=== PATIENT | female | born 1980 | race Caucasian/White ===

== ENCOUNTER 2018-02-17 03:11 | Inpatient (IN) | payer BC ==
[2018-02-17] MEDS ORDERED: Sodium Chloride 0.9% 10 ML Syringe FLUSH PRN ×2 (03:55→23:01)
[2018-02-17] MEDS ORDERED: Ondansetron 4 MG/2 ML SDV IVPUSH PRN ×2 (03:55→13:49)
[2018-02-17] MEDS ORDERED: Oxytocin/Lactated Ringers 10 UNIT/1,000 ML BAG IV SCH (04:00)
--- NOTE | 2018-02-17 08:03 | PCM.HP ---
<CesiliahomarLilliam L - Last Filed: 02/17/18 08:22> H&P History of Present Illness - General Date of Service: 02/17/18 Admit Problem/Dx: Admission Diagnosis/Problem Admission Diagnosis/Problem - History of Present Illness Initial Comments - Free Text/Narative: Jackie is a 37 YO white female who presented today at 02:00 for spontaneous rupture of membranes at 38-3/7 wks gestation by LMP and confirmed by U/S on 08/10/17. At 03:30 was found to be 1 cm dilated, 50% effaced, cervix posterior and firm. GBS neg. A POS blood type. RPR/HIV/HBsAg/GC/Chlamydia were all negative on screening. Rubella immune, Tdap given 12/16/17. History of section due to breech presentation. 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 No known h/o genetic diseases/disorders in family. 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: : 2 Para: 1 LMP (Approximate): - Past Surgical History Female Surgical History: Reports: Section (breech presentation), Other (See Below) Other Female Surgeries/Procedures: ASCUS HPV 2007, COLPOSCOPY 2007, normal since Social & Family History - Family History Family Medical History: Noncontributory - Tobacco Use Smoking Status *Q: Never Smoker Second Hand Smoke Exposure: No - Caffeine Use Caffeine Use: Reports: Coffee - Recreational Drug Use Recreational Drug Use: No H&P Review of Systems - Review of Systems: Review Of Systems: See Below General: Reports: No Symptoms HEENT: Reports: No Symptoms Pulmonary: Reports: No Symptoms Cardiovascular: Reports: No Symptoms Gastrointestinal: Reports: No Symptoms Genitourinary: Reports: No Symptoms Musculoskeletal: Reports: No Symptoms Skin: Reports: No Symptoms Psychiatric: Reports: No Symptoms Neurological: Reports: No Symptoms Hematologic/Lymphatic: Reports: No Symptoms Immunologic: Reports: No Symptoms Exam - Exam Exam: See Below - Vital Signs Vital Signs: Last Vital Signs Temp 37.1 C 02/17/18 03:52 Pulse 85 02/17/18 03:52 Resp 16 02/17/18 03:52 BP 114/81 02/17/18 03:52 Pulse Ox 98 02/17/18 03:52 Weight: 188 lb - Exam General: Alert, Oriented, 4 HEENT: Conjunctiva Clear, Hearing Intact Lungs: Clear to Auscultation, Normal Respiratory Effort Cardiovascular: Regular Rate, Regular Rhythm GI/Abdominal Exam: Normal Bowel Sounds (Female) Exam: Normal External Exam, Normal Bimanual Exam Extremities: Normal Inspection, Normal Range of Motion, Non-Tender, No Pedal Edema, Normal Capillary Refill Skin: Warm, Dry, Intact Neuro Extensive - Mental Status: Alert, Oriented x3, Normal Mood/Affect, Normal Cognition Psychiatric: Alert, Normal Affect, Normal Mood - Patient Data Lab Results Last 24 hrs: Laboratory Results - last 24 hr 02/17/18 02/17/18 Range/Units 04:05 04:05 WBC 9.91 (3.98-10.04) K/mm3 RBC 4.15 (3.98-5.22) M/mm3 Hgb 12.3 (11.2-15.7) gm/L Hct 37.0 (34.1-44.9) % MCV 89.2 (79.4-94.8) fl MCH 29.6 (25.6-32.2) pg MCHC 33.2 (32.2-35.5) g/dl RDW Std Deviation 41.1 (36.4-46.3) fL Plt Count 169 L (182-369) K/mm3 MPV 11.6 (9.4-12.3) fl Neut % (Auto) 66.6 (34.0-71.1) % Lymph % (Auto) 22.8 (19.3-51.7) % [place] % (Auto) 8.7 (4.7-12.5) % Eos % (Auto) 1.4 (0.7-5.8) Baso % (Auto) 0.3 (0.1-1.2) % Neut # (Auto) 6.60 H (1.56-6.13) K/mm3 Lymph # (Auto) 2.26 (1.18-3.74) K/mm3 [place] # (Auto) 0.86 H (0.24-0.36) K/mm3 Eos # (Auto) 0.14 (0.04-0.36) K/mm3 Baso # (Auto) 0.03 (0.01-0.08) K/mm3 Blood Type A POSITIVE Gel Antibody Screen Negative Result Diagrams: 02/17/18 04:05 - Problem List (1) 38 weeks gestation of SNOMED Code(s): 81272676 ICD Code: Z3A.38 - 38 WEEKS GESTATION OF Status: Acute Current Visit: Yes (2) Full-term premature rupture of membranes with onset of labor within 24 hours of rupture SNOMED Code(s): 943495342 ICD Code: O42.02 - FULL-TERM LOWELL ROM, ONSET LABOR WITHIN 24 HOURS OF RUPTURE Status: Acute Current Visit: Yes Problem List Initiated/Reviewed/Updated: Yes Orders Last 24hrs: Active Orders 24 hr Category Date Time Status Patient Status [ADT] Routine ADT 02/17/18 03:55 Active Activity as Tolerated [RC] PFP Care 02/17/18 03:55 Active Communication Order [RC] ASDIRECTED Care 02/17/18 03:55 Active Heart Tones [RC] ASDIRECTED Care 02/17/18 03:55 Active Non Stress Test [RC] PER UNIT ROUTINE Care 02/17/18 03:55 Active Notify Provider [RC] PFP Care 02/17/18 03:55 Active Notify Provider [RC] PRN Care 02/17/18 03:55 Active Peripheral IV Care [RC] . DIRECTED Care 02/17/18 03:55 Active Vital Signs [RC] PER UNIT ROUTINE Care 02/17/18 03:55 Active Clear Liquid Diet [DIET] Diet 02/17/18 Breakfast Active RAPID PLASMA REAGIN,RPR [CHEM] Routine Lab 02/17/18 04:05 Received Lactated Ringers [Ringers, Lactated] 1,000 ml Med 02/17/18 04:00 Active IV ASDIRECTED Nalbuphine [Nubain] Med 02/17/18 03:55 Active 10 mg IVPUSH Q2H PRN Ondansetron [Zofran] Med 02/17/18 03:55 Active 4 mg IVPUSH Q4H PRN Oxytocin/Lactated Ringers [Pitocin in LR 10 Units/1,000 Med 02/17/18 04:00 Active ML] 10 unit in 1,000 ml IV .CONTINUOUS Oxytocin/Lactated Ringers [Pitocin in LR 10 Units/1,000 Med 02/17/18 04:00 Active ML] 10 unit in 1,000 ml IV TITRATE Sodium Chloride 0.9% [Saline Flush] Med 02/17/18 03:55 Active 10 ml FLUSH ASDIRECTED PRN Electronic Heart Tones Ext w TOCO [WOMSER] Ot 02/17/18 03:55 Ordered Routine Electronic Heart Tones Internal [WOMSER] Per Unit Ot 02/17/18 03:55 Ordered Routine Peripheral IV Insertion Adult [OM.PC] Routine [facility] 02/17/18 03:55 Ordered Resuscitation Status Routine Resus Stat 02/17/18 03:55 Ordered Medication Orders Lactated Ringer's (Ringers, Lactated) 1,000 mls @ 100 mls/hr IV ASDIRECTED BOO Oxytocin/Lactated Ringer's (Pitocin In Lr 10 Units/1,000 Ml) 10 unit in 1,000 mls @ 12 mls/hr IV TITRATE BOO; Protocol Oxytocin/Lactated Ringer's (Pitocin In Lr 10 Units/1,000 Ml) 10 unit in 1,000 mls @ 500 mls/hr IV .CONTINUOUS BOO Nalbuphine HCl (Nubain) 10 mg IVPUSH Q2H PRN PRN Reason: pain Ondansetron HCl (Zofran) 4 mg IVPUSH Q4H PRN PRN Reason: Nausea/Vomiting Sodium Chloride (Saline Flush) 10 ml FLUSH ASDIRECTED PRN PRN Reason: Keep Vein Open Assessment/Plan Comment:: ASSESSMENT Patient is elva regularly on her own without medical amplification of labor. Patient strongly desires , vertex presentation of the fetus was confirmed via ultrasound at 08:30hrs. PLAN 1. Continue to monitor labor 2. Support patient's desire for 3. Plan for <Calos Cárdenas - Last Filed: 02/17/18 11:08> H&P History of Present Illness - General Admit Problem/Dx: Admission Diagnosis/Problem Admission Diagnosis/Problem - History of Present Illness Symptom Onset Date: 02/17/18 Symptom Onset Time: 02:00 (SROM) Exam - Vital Signs Vital Signs: Last Vital Signs Temp 98.7 F 02/17/18 03:52 Pulse 85 02/17/18 03:52 Resp 16 02/17/18 03:52 BP 114/81 02/17/18 03:52 Pulse Ox 98 02/17/18 03:52 - Patient Data Lab Results Last 24 hrs: Laboratory Results - last 24 hr 02/17/18 02/17/18 Range/Units 04:05 04:05 WBC 9.91 (3.98-10.04) K/mm3 RBC 4.15 (3.98-5.22) M/mm3 Hgb 12.3 (11.2-15.7) gm/L Hct 37.0 (34.1-44.9) % MCV 89.2 (79.4-94.8) fl MCH 29.6 (25.6-32.2) pg MCHC 33.2 (32.2-35.5) g/dl RDW Std Deviation 41.1 (36.4-46.3) fL Plt Count 169 L (182-369) K/mm3 MPV 11.6 (9.4-12.3) fl Neut % (Auto) 66.6 (34.0-71.1) % Lymph % (Auto) 22.8 (19.3-51.7) % [place] % (Auto) 8.7 (4.7-12.5) % Eos % (Auto) 1.4 (0.7-5.8) Baso % (Auto) 0.3 (0.1-1.2) % Neut # (Auto) 6.60 H (1.56-6.13) K/mm3 Lymph # (Auto) 2.26 (1.18-3.74) K/mm3 [place] # (Auto) 0.86 H (0.24-0.36) K/mm3 Eos # (Auto) 0.14 (0.04-0.36) K/mm3 Baso # (Auto) 0.03 (0.01-0.08) K/mm3 Blood Type A POSITIVE Gel Antibody Screen Negative Result Diagrams: 02/17/18 04:05 - Problem List (1) 38 weeks gestation of SNOMED Code(s): 53808920 ICD Code: Z3A.38 - 38 WEEKS GESTATION OF Status: Acute Current Visit: Yes (2) Full-term premature rupture of membranes with onset of labor within 24 hours of rupture SNOMED Code(s): 485383197 ICD Code: O42.02 - FULL-TERM LOWELL ROM, ONSET LABOR WITHIN 24 HOURS OF RUPTURE Status: Acute Current Visit: Yes Problem List Initiated/Reviewed/Updated: No Orders Last 24hrs: Active Orders 24 hr Category Date Time Status Patient Status [ADT] Routine ADT 02/17/18 03:55 Active Activity as Tolerated [RC] PFP Care 02/17/18 03:55 Active Communication Order [RC] ASDIRECTED Care 02/17/18 03:55 Active Heart Tones [RC] ASDIRECTED Care 02/17/18 03:55 Active Non Stress Test [RC] PER UNIT ROUTINE Care 02/17/18 03:55 Active Notify Provider [RC] PFP Care 02/17/18 03:55 Active Notify Provider [RC] PRN Care 02/17/18 03:55 Active Peripheral IV Care [RC] . DIRECTED Care 02/17/18 03:55 Active Vital Signs [RC] PER UNIT ROUTINE Care 02/17/18 03:55 Active Clear Liquid Diet [DIET] Diet 02/17/18 Breakfast Active RAPID PLASMA REAGIN,RPR [CHEM] Routine Lab 02/17/18 04:05 Received Lactated Ringers [Ringers, Lactated] 1,000 ml Med 02/17/18 04:00 Active IV ASDIRECTED Nalbuphine [Nubain] Med 02/17/18 03:55 Active 10 mg IVPUSH Q2H PRN Ondansetron [Zofran] Med 02/17/18 03:55 Active 4 mg IVPUSH Q4H PRN Oxytocin/Lactated Ringers [Pitocin in LR 10 Units/1,000 Med 02/17/18 04:00 Active ML] 10 unit in 1,000 ml IV .CONTINUOUS Oxytocin/Lactated Ringers [Pitocin in LR 10 Units/1,000 Med 02/17/18 04:00 Active ML] 10 unit in 1,000 ml IV TITRATE Sodium Chloride 0.9% [Saline Flush] Med 02/17/18 03:55 Active 10 ml FLUSH ASDIRECTED PRN Electronic Heart Tones Ext w TOCO [WOMSER] Ot 02/17/18 03:55 Ordered Routine Electronic Heart Tones Internal [WOMSER] Per Unit Ot 02/17/18 03:55 Ordered Routine Peripheral IV Insertion Adult [OM.PC] Routine Ot 02/17/18 03:55 Ordered Resuscitation Status Routine Resus Stat 02/17/18 03:55 Ordered Medication Orders Lactated Ringer's (Ringers, Lactated) 1,000 mls @ 100 mls/hr IV ASDIRECTED BOO Oxytocin/Lactated Ringer's (Pitocin In Lr 10 Units/1,000 Ml) 10 unit in 1,000 mls @ 12 mls/hr IV TITRATE BOO; Protocol Oxytocin/Lactated Ringer's (Pitocin In Lr 10 Units/1,000 Ml) 10 unit in 1,000 mls @ 500 mls/hr IV .CONTINUOUS BOO Nalbuphine HCl (Nubain) 10 mg IVPUSH Q2H PRN PRN Reason: pain Last Admin: 02/17/18 09:02 Dose: 10 mg Ondansetron HCl (Zofran) 4 mg IVPUSH Q4H PRN PRN Reason: Nausea/Vomiting Sodium Chloride (Saline Flush) 10 ml FLUSH ASDIRECTED PRN PRN Reason: Keep Vein Open Assessment/Plan Comment:: Patient seen by me and examined by me and discussed with student.
[2018-02-17] MEDS: Nalbuphine 20 MG/ML 1 ML Syringe IVPUSH PRN ×2 (09:02→13:19)
[2018-02-17] MEDS: Lactated Ringers 1,000 ML IV SCH ×2 (11:26→14:39)
[2018-02-17] MEDS ORDERED: fentaNYL 100 MCG/2 ML SDV EPIDUR PRN (13:49)
[2018-02-17] MEDS ORDERED: ePHEDrine 50 MG/ML SDV IVPUSH PRN (13:49)
[2018-02-17] MEDS ORDERED: diphenhydrAMINE 50 MG/ML SDV IVPUSH PRN (13:49)
[2018-02-17] MEDS ORDERED: Bupivacaine/fentaNYL/NS 100 ML Bag EPIDUR SCH (14:00)
--- NOTE | 2018-02-17 14:35 | PCM.PREANE ---
Preanesthetic Assessment - Anesthesia/Transfusion/Family Hx Anesthesia History: Prior Anesthesia Without Reaction Family History of Anesthesia Reaction: No Transfusion History: No Prior Transfusion(s) - Review of Systems General: No Symptoms Pulmonary: No Symptoms Cardiovascular: No Symptoms Gastrointestinal: No Symptoms Neurological: No Symptoms Other: Reports: None - Physical Assessment O2 Sat by Pulse Oximetry: 98 Respiratory Rate: 16 Vital Signs: Last Vital Signs Temp 37.1 C 02/17/18 03:52 Pulse 85 02/17/18 03:52 Resp 16 02/17/18 03:52 BP 114/81 02/17/18 03:52 Pulse Ox 98 02/17/18 03:52 Height: 1.75 m Weight: 85.275 kg ASA Class: 2 Mental Status: Alert & Oriented x3 Airway Class: Mallampati = 2 Dentition: Reports: Normal Dentition Thyro-Mental Finger Breadths: 3 Mouth Opening Finger Breadths: 3 ROM/Head Extension: Full Lungs: Clear to Auscultation, Normal Respiratory Effort Cardiovascular: Regular Rate, Regular Rhythm - Lab Values: Laboratory Last Values WBC 9.91 K/mm3 (3.98-10.04) 02/17/18 04:05 RBC 4.15 M/mm3 (3.98-5.22) 02/17/18 04:05 Hgb 12.3 gm/L (11.2-15.7) 02/17/18 04:05 Hct 37.0 % (34.1-44.9) 02/17/18 04:05 MCV 89.2 fl (79.4-94.8) 02/17/18 04:05 MCH 29.6 pg (25.6-32.2) 02/17/18 04:05 MCHC 33.2 g/dl (32.2-35.5) 02/17/18 04:05 RDW Std Deviation 41.1 fL (36.4-46.3) 02/17/18 04:05 Plt Count 169 K/mm3 (182-369) L 02/17/18 04:05 MPV 11.6 fl (9.4-12.3) 02/17/18 04:05 Neut % (Auto) 66.6 % (34.0-71.1) 02/17/18 04:05 Lymph % (Auto) 22.8 % (19.3-51.7) 02/17/18 04:05 [place] % (Auto) 8.7 % (4.7-12.5) 02/17/18 04:05 Eos % (Auto) 1.4 (0.7-5.8) 02/17/18 04:05 Baso % (Auto) 0.3 % (0.1-1.2) 02/17/18 04:05 Neut # (Auto) 6.60 K/mm3 (1.56-6.13) H 02/17/18 04:05 Lymph # (Auto) 2.26 K/mm3 (1.18-3.74) 02/17/18 04:05 [place] # (Auto) 0.86 K/mm3 (0.24-0.36) H 02/17/18 04:05 Eos # (Auto) 0.14 K/mm3 (0.04-0.36) 02/17/18 04:05 Baso # (Auto) 0.03 K/mm3 (0.01-0.08) 02/17/18 04:05 RPR Non-reactive (NONREACTIVE) 02/17/18 04:05 Blood Type A POSITIVE 02/17/18 04:05 Gel Antibody Screen Negative 02/17/18 04:05 - Allergies Allergies/Adverse Reactions: Allergies Allergy/AdvReac Type Severity Reaction Status Date / Time No Known Allergies Allergy Verified 02/17/18 03:52 - Acknowledgements Anesthesia Type Planned: Epidural Pt an Appropriate Candidate for the Planned Anesthesia: Yes Alternatives and Risks of Anesthesia Discussed w Pt/Guardian: Yes Pt/Guardian Understands and Agrees with Anesthesia Plan: Yes 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: - Past Surgical History Female Surgical History: Reports: Section (breech presentation), Other (See Below) Other Female Surgeries/Procedures: ASCUS HPV 2007, COLPOSCOPY 2007, normal since - SUBSTANCE USE Smoking Status *Q: Never Smoker Second Hand Smoke Exposure: No Recreational Drug Use History: No - HOME MEDS Home Medications: Home Meds Doxylamine/Pyridoxine HCl [Diclegis Dr 10-10 mg Tablet] 1 each PO DAILY [History] PNV95/Ferrous Fumarate/FA [ Tablet] 1 tab PO DAILY 02/17/18 [History] - CURRENT (IN HOUSE) MEDS Current Meds: Current Medications Diphenhydramine HCl (Benadryl) 25 mg IVPUSH Q6H PRN PRN Reason: Pruritis Ephedrine Sulfate (Ephedrine Sulfate) 5 mg IVPUSH ASDIRECTED PRN PRN Reason: Hypotension Fentanyl (Sublimaze) 100 mcg EPIDUR ONETIME PRN PRN Reason: Pain Last Admin: 02/17/18 14:22 Dose: 100 mcg Fentanyl/Bupivacaine HCl (Fentanyl/Bupivacaine/Ns 2 Mcg-0.125% 100 Ml) 100 ml EPIDUR ASDIRECTED BOO Last Admin: 02/17/18 14:22 Dose: 100 ml Lactated Ringer's (Ringers, Lactated) 1,000 mls @ 100 mls/hr IV ASDIRECTED BOO Last Admin: 02/17/18 11:26 Dose: 100 mls/hr Oxytocin/Lactated Ringer's (Pitocin In Lr 10 Units/1,000 Ml) 10 unit in 1,000 mls @ 12 mls/hr IV TITRATE BOO; Protocol Oxytocin/Lactated Ringer's (Pitocin In Lr 10 Units/1,000 Ml) 10 unit in 1,000 mls @ 500 mls/hr IV .CONTINUOUS BOO Nalbuphine HCl (Nubain) 10 mg IVPUSH Q2H PRN PRN Reason: pain Last Admin: 02/17/18 13:19 Dose: 10 mg Ondansetron HCl (Zofran) 4 mg IVPUSH Q4H PRN PRN Reason: Nausea/Vomiting Ondansetron HCl (Zofran) 4 mg IVPUSH ONETIME PRN PRN Reason: Nausea/Vomiting Sodium Chloride (Saline Flush) 10 ml FLUSH ASDIRECTED PRN PRN Reason: Keep Vein Open
--- NOTE | 2018-02-17 16:17 | PCM.SN ---
- Free Text/Narrative Note: Called to evaluated epidural. Sensory level at T6. Right side feels slightly more numb than the left. Jackie states she feels nauseated and fuzzy. She is able to move both of her legs well. Strong hand grasp noted. Sitting up in bed at this time. I discussed turning her epidural rate down (10ml/hour currently). She would like to leave it where it is for now. She is much more comfortable than before. I requested loly for her nausea. Her BP is stable 120/71 while I was visiting with her. All questions answered. Please call if I can be of further assistance.
--- NOTE | 2018-02-17 16:36 | PCM.SN ---
- Free Text/Narrative Note: Cervix is 5 cm, 100%, soft, anterior, vertex-1. Cat I FHR.
[2018-02-17] MEDS ORDERED: Bupivacaine 0.25% 10 ML SDV ONE (18:00)
[2018-02-17] MEDS: Oxytocin/Lactated Ringers 10 UNIT/1,000 ML BAG IV SCH (22:20)
--- NOTE | 2018-02-17 22:50 | PCM.DEL ---
L & D Note - General Info Date of Service: 02/17/18 Mother's Due Date: 03/01/18 - Delivery Note Labor: Spontaneous Delivery Outcome: Livebirth (Male Liveborn in bed by RN at 2218 hrs. I arrived at 2219 hrs. Apgars 8/9 weight pending) Infant Delivery Method: Spontaneous Vaginal Delivery-Single Delivery Mode: Spontaneous Presentation: Vertex Nuchal Cord: Present (Easily reduced) Prep: Povidone-Iodine (Betadine (For laceration repair second-degree laceration midline repaired with 3-0 Monocryl times one left labia minora first-degree laceration not bleeding not sutured (periurethral)) Anesthesia Type: Epidural Amniotic Fluid Description: Clear Episiotomy Type: None Laceration: 2nd Degree Suture type: Other (Monocryl) Suture size: 3-0 (Times one) Placenta: Spontaneous (At 2225 hours intact examined discarded) Cord: 3 Vessels Estimated Blood Loss: 250 Resuscitation Needed: No : Suctioned, Bulb Syringe, Stimulated, Warmed, Nora Used, Warmer Used Provider: Calos Cárdenas Score 1 min: 8 Score 5 min: 9 - General Info Date of Service: 02/17/18 Functional Status: Reports: Pain Controlled - Review of Systems General: Reports: No Symptoms HEENT: Reports: No Symptoms Pulmonary: Reports: No Symptoms Cardiovascular: Reports: No Symptoms Gastrointestinal: Reports: No Symptoms Genitourinary: Reports: No Symptoms Musculoskeletal: Reports: No Symptoms Skin: Reports: No Symptoms Neurological: Reports: No Symptoms Psychiatric: Reports: No Symptoms - Patient Data Vitals - Most Recent: Last Vital Signs Temp 98.7 F 02/17/18 03:52 Pulse 85 02/17/18 03:52 Resp 16 02/17/18 15:09 BP 114/81 02/17/18 03:52 Pulse Ox 98 02/17/18 15:09 Weight - Most Recent: 188 lb I&O - Last 24 Hours: Intake & Output 02/17/18 02/17/18 02/17/18 06:59 14:59 22:59 Intake Total 1000 Balance 1000 Lab Results Last 24 Hours: Laboratory Results - last 24 hr 02/17/18 02/17/18 02/17/18 Range/Units 04:05 04:05 04:05 WBC 9.91 (3.98-10.04) K/mm3 RBC 4.15 (3.98-5.22) M/mm3 Hgb 12.3 (11.2-15.7) gm/L Hct 37.0 (34.1-44.9) % MCV 89.2 (79.4-94.8) fl MCH 29.6 (25.6-32.2) pg MCHC 33.2 (32.2-35.5) g/dl RDW Std Deviation 41.1 (36.4-46.3) fL Plt Count 169 L (182-369) K/mm3 MPV 11.6 (9.4-12.3) fl Neut % (Auto) 66.6 (34.0-71.1) % Lymph % (Auto) 22.8 (19.3-51.7) % [place] % (Auto) 8.7 (4.7-12.5) % Eos % (Auto) 1.4 (0.7-5.8) Baso % (Auto) 0.3 (0.1-1.2) % Neut # (Auto) 6.60 H (1.56-6.13) K/mm3 Lymph # (Auto) 2.26 (1.18-3.74) K/mm3 [place] # (Auto) 0.86 H (0.24-0.36) K/mm3 Eos # (Auto) 0.14 (0.04-0.36) K/mm3 Baso # (Auto) 0.03 (0.01-0.08) K/mm3 RPR Non-reactive (NONREACTIVE) Blood Type A POSITIVE Gel Antibody Screen Negative Med Orders - Current: Current Medications Diphenhydramine HCl (Benadryl) 25 mg IVPUSH Q6H PRN PRN Reason: Pruritis Ephedrine Sulfate (Ephedrine Sulfate) 5 mg IVPUSH ASDIRECTED PRN PRN Reason: Hypotension Fentanyl (Sublimaze) 100 mcg EPIDUR ONETIME PRN PRN Reason: Pain Last Admin: 02/17/18 14:22 Dose: 100 mcg Fentanyl/Bupivacaine HCl (Fentanyl/Bupivacaine/Ns 2 Mcg-0.125% 100 Ml) 100 ml EPIDUR ASDIRECTED BOO Last Admin: 02/17/18 14:22 Dose: 100 ml Lactated Ringer's (Ringers, Lactated) 1,000 mls @ 100 mls/hr IV ASDIRECTED BOO Last Admin: 02/17/18 14:39 Dose: 100 mls/hr Oxytocin/Lactated Ringer's (Pitocin In Lr 10 Units/1,000 Ml) 10 unit in 1,000 mls @ 12 mls/hr IV TITRATE BOO; Protocol Oxytocin/Lactated Ringer's (Pitocin In Lr 10 Units/1,000 Ml) 10 unit in 1,000 mls @ 500 mls/hr IV .CONTINUOUS BOO Nalbuphine HCl (Nubain) 10 mg IVPUSH Q2H PRN PRN Reason: pain Last Admin: 02/17/18 13:19 Dose: 10 mg Ondansetron HCl (Zofran) 4 mg IVPUSH Q4H PRN PRN Reason: Nausea/Vomiting Last Admin: 02/17/18 16:05 Dose: 4 mg Ondansetron HCl (Zofran) 4 mg IVPUSH ONETIME PRN PRN Reason: Nausea/Vomiting Sodium Chloride (Saline Flush) 10 ml FLUSH ASDIRECTED PRN PRN Reason: Keep Vein Open - Problem List & Annotations (1) 38 weeks gestation of SNOMED Code(s): 83347313 Code(s): Z3A.38 - 38 WEEKS GESTATION OF Status: Acute Current Visit: Yes (2) Full-term premature rupture of membranes with onset of labor within 24 hours of rupture SNOMED Code(s): 668882181 Code(s): O42.02 - FULL-TERM LOWELL ROM, ONSET LABOR WITHIN 24 HOURS OF RUPTURE Status: Acute Current Visit: Yes (3) Labor and delivery complicated by cord around neck without compression SNOMED Code(s): 316632467, 690361616 Code(s): O69.81X0 - LABOR AND DEL COMP BY CORD AROUND NECK, W/O COMPRSN, UNSP Status: Acute Current Visit: Yes (4) Vaginal after () SNOMED Code(s): 532017785 Code(s): O34.219 - MATERNAL CARE FOR UNSP TYPE SCAR FROM PREVIOUS DEL Status: Acute Current Visit: Yes (5) Second degree perineal laceration during delivery SNOMED Code(s): 2173270 Code(s): O70.1 - SECOND DEGREE PERINEAL LACERATION DURING DELIVERY Status: Acute Current Visit: Yes - Problem List Review Problem List Initiated/Reviewed/Updated: No - My Orders Last 24 Hours: My Active Orders 02/17/18 03:55 Patient Status [ADT] Routine Activity as Tolerated [RC] PFP Communication Order [RC] ASDIRECTED Heart Tones [RC] ASDIRECTED Non Stress Test [RC] PER UNIT ROUTINE Notify Provider [RC] PFP Notify Provider [RC] PRN Peripheral IV Care [RC] . DIRECTED Vital Signs [RC] PER UNIT ROUTINE Nalbuphine [Nubain] 10 mg IVPUSH Q2H PRN Ondansetron [Zofran] 4 mg IVPUSH Q4H PRN Sodium Chloride 0.9% [Saline Flush] 10 ml FLUSH ASDIRECTED PRN Electronic Heart Tones Ext w TOCO [WOMSER] Routine Electronic Heart Tones Internal [WOMSER] Per Unit Routine Peripheral IV Insertion Adult [OM.PC] Routine Resuscitation Status Routine 02/17/18 04:00 Lactated Ringers [Ringers, Lactated] 1,000 ml IV ASDIRECTED Oxytocin/Lactated Ringers [Pitocin in LR 10 Units/1,000 ML] 10 unit in 1,000 ml IV .CONTINUOUS Oxytocin/Lactated Ringers [Pitocin in LR 10 Units/1,000 ML] 10 unit in 1,000 ml IV TITRATE 02/17/18 Breakfast Clear Liquid Diet [DIET] - Plan Plan:: Patient seen by me and examined by me and discussed with student.
[2018-02-17] MEDS ORDERED: Lanolin 100% Cream 7 GM Tube TOP PRN (23:01)
[2018-02-17] MEDS ORDERED: Witch Hazel Medicated Pads 100/Jar TOP PRN (23:01)
[2018-02-17] MEDS ORDERED: Benzocaine/Menthol 20%-0.5% Spray 56 GM Canister TOP PRN (23:01)
[2018-02-17] MEDS ORDERED: Docusate Sodium 100 MG Cap PO PRN (23:01)
[2018-02-17] MEDS ORDERED: Acetaminophen 325 MG Tab PO PRN (23:01)
[2018-02-18] MEDS: Oxytocin/Lactated Ringers 10 UNIT/1,000 ML BAG IV SCH
[2018-02-18] MEDS ORDERED: Ondansetron 4 MG/2 ML SDV IVPUSH ONE (00:57)
[2018-02-18] MEDS: Ibuprofen 600 MG Tab PO PRN ×3 (06:56→19:33)
--- NOTE | 2018-02-18 11:37 | PCM.SN ---
- Free Text/Narrative Note: PPD#1 Afebrile, ambulating, doing well, no heavy vaginal bleeding, no leg cramping. Lives in [place], will probably go tomorrow. Report given to Dr Williamson.
[2018-02-19] MEDS: Ibuprofen 600 MG Tab PO PRN ×2 (03:17→11:34)
--- NOTE | 2018-02-19 11:44 | PCM.SN ---
- Free Text/Narrative Note: Post Progress Note PPD # 2 Subjective: Doing well overall. Ambulating without difficulty. Lochia minimal. Voiding without difficulty. Tolerating regular diet without nausea or vomiting. Pain controlled with oral medications. Breast feeding with minimal difficulty. Objective: Vitals: Vital Signs - 24 hr 02/18/18 02/18/18 02/19/18 14:39 20:06 03:12 Temperature 37.2 C 36.7 C 36.7 C Pulse, 83 78 79 Peripheral Respiratory 19 14 16 Rate Blood Pressure 97/76 104/75 108/62 O2 Sat by Pulse 98 97 97 Oximetry 02/19/18 09:45 Temperature 36.7 C Pulse, 91 Peripheral Respiratory 16 Rate Blood Pressure 106/83 O2 Sat by Pulse 97 Oximetry Physical Exam General: Alert and oriented, no acute distress Lungs: Clear to auscultation bilaterally Heart: Regular rate and rhythm Abdomen: Soft, minimal appropriate tenderness, non-distended, fundus midline, nontender, and below the umbilicus Extremities: No edema Laboratory Tests 02/17/18 02/17/18 02/17/18 Range/Units 04:05 04:05 04:05 WBC 9.91 (3.98-10.04) K/mm3 RBC 4.15 (3.98-5.22) M/mm3 Hgb 12.3 (11.2-15.7) gm/L Hct 37.0 (34.1-44.9) % MCV 89.2 (79.4-94.8) fl MCH 29.6 (25.6-32.2) pg MCHC 33.2 (32.2-35.5) g/dl RDW Std Deviation 41.1 (36.4-46.3) fL Plt Count 169 L (182-369) K/mm3 MPV 11.6 (9.4-12.3) fl Neut % (Auto) 66.6 (34.0-71.1) % Lymph % (Auto) 22.8 (19.3-51.7) % Park % (Auto) 8.7 (4.7-12.5) % Eos % (Auto) 1.4 (0.7-5.8) Baso % (Auto) 0.3 (0.1-1.2) % Neut # (Auto) 6.60 H (1.56-6.13) K/mm3 Lymph # (Auto) 2.26 (1.18-3.74) K/mm3 Park # (Auto) 0.86 H (0.24-0.36) K/mm3 Eos # (Auto) 0.14 (0.04-0.36) K/mm3 Baso # (Auto) 0.03 (0.01-0.08) K/mm3 RPR Non-reactive (NONREACTIVE) Blood Type A POSITIVE Gel Antibody Screen Negative 02/18/18 Range/Units 06:57 WBC 13.86 H (3.98-10.04) K/mm3 RBC 3.69 L (3.98-5.22) M/mm3 Hgb 11.0 L (11.2-15.7) gm/L Hct 33.6 L (34.1-44.9) % MCV 91.1 (79.4-94.8) fl MCH 29.8 (25.6-32.2) pg MCHC 32.7 (32.2-35.5) g/dl RDW Std Deviation 42.3 (36.4-46.3) fL Plt Count 176 L (182-369) K/mm3 MPV 11.8 (9.4-12.3) fl Neut % (Auto) 78.9 H (34.0-71.1) % Lymph % (Auto) 14.1 L (19.3-51.7) % Park % (Auto) 6.1 (4.7-12.5) % Eos % (Auto) 0.6 L (0.7-5.8) Baso % (Auto) 0.1 (0.1-1.2) % Neut # (Auto) 10.93 H (1.56-6.13) K/mm3 Lymph # (Auto) 1.96 (1.18-3.74) K/mm3 Park # (Auto) 0.84 H (0.24-0.36) K/mm3 Eos # (Auto) 0.08 (0.04-0.36) K/mm3 Baso # (Auto) 0.02 (0.01-0.08) K/mm3 RPR (NONREACTIVE) Blood Type Gel Antibody Screen ASSESSMENT: 37-year-old female G 2 P 2002 s/p vaginal delivery after PPD #2, complicated by history of for breech and advanced maternal age PLAN: Doing well Breast feeding with minimal difficulty. Assist as needed Lochia minimal. Continue to monitor for appropriate lochia. Continue routine care Anticipate discharge home today Mitchell Forbes MD 11:43 AM 02/19/2018
--- NOTE | 2018-02-19 11:46 | PCM.DCSUM1 ---
Discharge Summary - Hospital Course Free Text/Narrative:: - General Info Date of Service: 02/17/18 Mother's Due Date: 03/01/18 - Delivery Note Labor: Spontaneous Delivery Outcome: Livebirth (Male Liveborn in bed by RN at 2218 hrs. I arrived at 2219 hrs. Apgars 8/9 weight pending) Delivery Method: Spontaneous Vaginal Delivery-Single Delivery Mode: Spontaneous Presentation: Vertex Nuchal Cord: Present (Easily reduced) Prep: Povidone-Iodine (Betadine (For laceration repair second-degree laceration midline repaired with 3-0 Monocryl times one left labia minora first-degree laceration not bleeding not sutured (periurethral)) Anesthesia Type: Epidural Amniotic Fluid Description: Clear Episiotomy Type: None Laceration: 2nd Degree Suture type: Other (Monocryl) Suture size: 3-0 (Times one) Placenta: Spontaneous (At 2225 hours intact examined discarded) Cord: 3 Vessels Estimated Blood Loss: 250 Resuscitation Needed: No : Suctioned, Bulb Syringe, Stimulated, Warmed, [place] Used, Warmer Used Provider: Calos Cárdenas Score 1 min: 8 Score 5 min: 9 HPI Initial Comments: - General Info Date of Service: 02/17/18 Mother's Due Date: 03/01/18 - Delivery Note Labor: Spontaneous Delivery Outcome: Livebirth (Male Liveborn in bed by RN at 2218 hrs. I arrived at 2219 hrs. Apgars 8/9 weight pending) Delivery Method: Spontaneous Vaginal Delivery-Single Infant Delivery Mode: Spontaneous Presentation: Vertex Nuchal Cord: Present (Easily reduced) Prep: Povidone-Iodine (Betadine (For laceration repair second-degree laceration midline repaired with 3-0 Monocryl times one left labia minora first-degree laceration not bleeding not sutured (periurethral)) Anesthesia Type: Epidural Amniotic Fluid Description: Clear Episiotomy Type: None Laceration: 2nd Degree Suture type: Other (Monocryl) Suture size: 3-0 (Times one) Placenta: Spontaneous (At 2225 hours intact examined discarded) Cord: 3 Vessels Estimated Blood Loss: 250 Resuscitation Needed: No Chemult: Suctioned, Bulb Syringe, Stimulated, Warmed, [place] Used, Warmer Used Provider: Calos Cárdenas Score 1 min: 8 Score 5 min: 9 Brief History: - General Info. Date of Service: 02/17/18. Mother's Due Date: 03/01/18. - Delivery Note. Labor: Spontaneous. Delivery Outcome: Livebirth ( Male Liveborn in bed by RN at 2218 hrs. I arrived at 2219 hrs. Apgars 8/9 weight pending). Delivery Method: Spontaneous Vaginal Delivery-Single. Delivery Mode: Spontaneous. Presentation: Vertex. Nuchal Cord: Present (Easily reduced). Prep: Povidone-Iodine (Betadine (For laceration repair second-degree laceration midline repaired with 3-0 Monocryl times one left labia minora first-degree laceration not bleeding not sutured (periurethral )). Anesthesia Type: Epidural. Amniotic Fluid Description: Clear. Episiotomy Type: None. Laceration: 2nd Degree. Suture type: Other (Monocryl). Suture size: 3-0 (Times one). Placenta: Spontaneous (At 2225 hours intact examined discarded). Cord: 3 Vessels. Estimated Blood Loss: 250. Resuscitation Needed : No. Chemult: Suctioned, Bulb Syringe, Stimulated, Warmed, [place] Used, Warmer Used. Provider: Calos Cárdenas. Score 1 min: 8. Score 5 min: 9 Diagnosis: Stroke: No - Discharge Data Discharge Date: 02/19/18 Discharge Disposition: Home, Self-Care 01 Condition: Good - Discharge Diagnosis/Problem(s) (1) 38 weeks gestation of SNOMED Code(s): 82438328 ICD Code: Z3A.38 - 38 WEEKS GESTATION OF Status: Acute Current Visit: Yes (2) Full-term premature rupture of membranes with onset of labor within 24 hours of rupture SNOMED Code(s): 826621425 ICD Code: O42.02 - FULL-TERM LOWELL ROM, ONSET LABOR WITHIN 24 HOURS OF RUPTURE Status: Acute Current Visit: Yes (3) Labor and delivery complicated by cord around neck without compression SNOMED Code(s): 780327393, 976282052 ICD Code: O69.81X0 - LABOR AND DEL COMP BY CORD AROUND NECK, W/O COMPRSN, UNSP Status: Acute Current Visit: Yes (4) Second degree perineal laceration during delivery SNOMED Code(s): 8285665 ICD Code: O70.1 - SECOND DEGREE PERINEAL LACERATION DURING DELIVERY Status : Acute Current Visit: Yes (5) Vaginal after () SNOMED Code(s): 695809494 ICD Code: O34.219 - MATERNAL CARE FOR UNSP TYPE SCAR FROM PREVIOUS DEL Status: Acute Current Visit: Yes - Patient Summary/Data Operative Procedure(s) Performed: None Complications: None Consults: None Hospital Course: Jackie Alegria was admitted for spontaneous labor with spontaneous rupture membranes with clear fluid. On admission her cervix was dilated to 1 cm. She was GBS negative. She was given an epidural for anesthesia. She progressed to complete and began pushing. On 02/17/2018 she had a vaginal delivery after section of a live male at 2218 by the RN. Apgars of 8 and 9. Weight of 2890 g (6 pounds 5.9 ounces). Her course was uneventful. Her pain was well controlled and she had minimal lochia. She was ambulating, tolerating a regular diet and voiding normally. She was breast feeding. She was afebrile and her hematocrit was 33.6 on day #1. She desired to be discharged home on the morning of PPD #2. Her blood type is a positive. - Patient Instructions Diet: Regular Diet as Tolerated Activity: Apply Ice, As Tolerated Activity, Other: Nothing in the vagina for 6 weeks Driving: May Drive Today Showering/Bathing: May Shower Notify Provider of: Fever, Increased Pain, Swelling and Redness, Drainage, Nausea and/or Vomiting Other/Special Instructions: Please contact our office if you're having heavy vaginal bleeding enough to soak a pad in less than an hour for several hours. - Discharge Plan *PRESCRIPTION DRUG MONITORING PROGRAM REVIEWED*: Not Applicable *COPY OF PRESCRIPTION DRUG MONITORING REPORT IN PATIENT [facility]: Not Applicable Home Medications: Home Meds Doxylamine/Pyridoxine HCl [Jaylens Dr 10-10 mg Tablet] 1 each PO DAILY [History] PNV95/Ferrous Fumarate/FA [ Tablet] 1 tab PO DAILY 02/17/18 [History] Acetaminophen [Tylenol] 650 mg PO Q6H PRN tablet 02/19/18 [Rx] Benzocaine/Menthol [Dermoplast Pain Relief [place]] 1 spray TOP ASDIRECTED PRN canister 02/19/18 [Rx] Docusate Sodium [Colace] 100 mg PO BID PRN cap 02/19/18 [Rx] Ibuprofen [Motrin] 600 mg PO Q6H PRN tablet 02/19/18 [Rx] Lanolin [Lansinoh HPA] 1 applic TOP ASDIRECTED PRN tube 02/19/18 [Rx] Witch Quyen [Tucks] 1 pad TOP ASDIRECTED PRN pad 02/19/18 [Rx] Patient Handouts: Vaginal Delivery, Care After Referrals: Calos Cárdenas MD [Primary Care Provider] - (Follow-up in 2 weeks or earlier as needed for visit.) - Discharge Summary/Plan Comment DC Time >30 min.: No - Patient Data Vitals - Most Recent: Last Vital Signs Temp 36.7 C 02/19/18 09:45 Pulse 91 02/19/18 09:45 Resp 16 02/19/18 09:45 BP 106/83 02/19/18 09:45 Pulse Ox 97 02/19/18 09:45 Weight - Most Recent: 85.275 kg I&O - Last 24 hours: Intake & Output 02/18/18 02/19/18 02/19/18 22:59 06:59 14:59 Intake Total 300 Balance 300 Med Orders - Current: Current Medications Acetaminophen (Tylenol) 650 mg PO Q4H PRN PRN Reason: mild pain or fever Benzocaine/Menthol (Dermoplast Pain Relief [place]) 0 gm TOP ASDIRECTED PRN PRN Reason: Perineal Comfort Measure Last Admin: 02/18/18 02:41 Dose: 1 can Docusate Sodium (Colace) 100 mg PO BID PRN PRN Reason: Constipation Emollient Ointment (Lansinoh Hpa) 0 gm TOP ASDIRECTED PRN PRN Reason: Sore Nipples Ibuprofen (Motrin) 600 mg PO Q4H PRN PRN Reason: Mild pain or fever Last Admin: 02/19/18 11:34 Dose: 600 mg Sodium Chloride (Saline Flush) 10 ml FLUSH ASDIRECTED PRN PRN Reason: Keep Vein Open Witch Qu[place]en (Tucks) 1 pad TOP ASDIRECTED PRN PRN Reason: Hemorrhoid pain Last Admin: 02/18/18 02:41 Dose: 1 box Discontinued Medications Diphenhydramine HCl (Benadryl) 25 mg IVPUSH Q6H PRN PRN Reason: Pruritis Ephedrine Sulfate (Ephedrine Sulfate) 5 mg IVPUSH ASDIRECTED PRN PRN Reason: Hypotension Fentanyl (Sublimaze) 100 mcg EPIDUR ONETIME PRN PRN Reason: Pain Last Admin: 02/17/18 14:22 Dose: 100 mcg Fentanyl/Bupivacaine HCl (Fentanyl/Bupivacaine/Ns 2 Mcg-0.125% 100 Ml) 100 ml EPIDUR ASDIRECTED BOO Last Admin: 02/17/18 14:22 Dose: 100 ml Lactated Ringer's (Ringers, Lactated) 1,000 mls @ 100 mls/hr IV ASDIRECTED BOO Last Admin: 02/17/18 14:39 Dose: 100 mls/hr Oxytocin/Lactated Ringer's (Pitocin In Lr 10 Units/1,000 Ml) 10 unit in 1,000 mls @ 12 mls/hr IV TITRATE BOO; Protocol Oxytocin/Lactated Ringer's (Pitocin In Lr 10 Units/1,000 Ml) 10 unit in 1,000 mls @ 500 mls/hr IV .CONTINUOUS BOO Last Admin: 02/18/18 00:00 Dose: 500 mls/hr Nalbuphine HCl (Nubain) 10 mg IVPUSH Q2H PRN PRN Reason: pain Last Admin: 02/17/18 13:19 Dose: 10 mg Ondansetron HCl (Zofran) 4 mg IVPUSH Q4H PRN PRN Reason: Nausea/Vomiting Last Admin: 02/17/18 16:05 Dose: 4 mg Ondansetron HCl (Zofran) 4 mg IVPUSH ONETIME PRN PRN Reason: Nausea/Vomiting Ondansetron HCl (Zofran) 4 mg IVPUSH ONETIME ONE Stop: 02/18/18 00:58 Last Admin: 02/18/18 01:00 Dose: 4 mg Sodium Chloride (Saline Flush) 10 ml FLUSH ASDIRECTED PRN PRN Reason: Keep Vein Open
== END 2018-02-19 12:47 | disposition home or self-care (01) | DRG 560 ==
LOC: JD.OBCHECK 03:11 → JD.OB 03:17 → JD.OBCHECK 03:55 → JD.OB 03:55 → OBSVTOIN 22:18 → JD.OB 22:19
PROVIDERS: ADMIT Obstetrics & Gynecology; ATTEND Obstetrics & Gynecology
PROC: 10E0XZZ Delivery of Products of Conception, External Approach (ICD-10-PCS; principal; 2018-02-17)
PROC: 0KQM0ZZ Repair Perineum Muscle, Open Approach (ICD-10-PCS; principal; 2018-02-17)
PROC: 00HU33Z Insertion of Infusion Device into Spinal Canal, Percutaneous Approach (ICD-10-PCS; 2018-02-17)
PROC: 3E0R3BZ Introduction of Anesthetic Agent into Spinal Canal, Percutaneous Approach (ICD-10-PCS; 2018-02-17)
DX: O42.02 Full-term premature rupture of membranes, onset of labor within 24 hours of rupture (principal); Z3A.38 38 weeks gestation of pregnancy; Z37.0 Single live birth; O70.1 Second degree perineal laceration during delivery; O69.81X0 Labor and delivery complicated by cord around neck, without compression, not applicable or unspecified; O98.32 Other infections with a predominantly sexual mode of transmission complicating childbirth; A63.0 Anogenital (venereal) warts; O34.219 Maternal care for unspecified type scar from previous cesarean delivery; N85.8 Other specified noninflammatory disorders of uterus
CPT/HCPCS: 36415; 51701; 59025; 59300; 59409; 85025; 86592; 86850; 86900; 86901; A9270-GY; J2300; J2405; J2590; J3010; J3490; J7120